=== PATIENT | female | born 1955 | race Caucasian/White ===

== ENCOUNTER → 2016-11-09 | Outpatient (CLI) | payer BC ==
[~2016-11-09] MED LIST: ATOXIMETIN-B1 CAP PO; BENADRYL25 M1 PO; CENEST; FLONASE NASAL S16 GM NS; GENTEAL0.32 OP; MULTIPLE VITAMI1 CAP PO; PREDNISONE10 MG; PREMARIN 0.60.625 M1 PO; RESTASIS0.05% OP; SINGULAIR 110 MG/TAB PO; VIACTIV CARAMEL PO; XOPENEX HF0.045 MG/A IH; ZYRTEC-D 12HR 51 TER PO
== END ==
LOC: MC.RAD 13:07
DX: Z12.31 Encounter for screening mammogram for malignant neoplasm of breast (principal); N63 Unspecified lump in breast

== ENCOUNTER → 2017-10-12 | Outpatient (CLI) | payer BC | LOC: MC.RAD 14:26 | DX: N63.10 Unspecified lump in the right breast, unspecified quadrant (principal) ==

== ENCOUNTER → 2017-10-18 | Outpatient (CLI) | payer BC | LOC: COL.RAD 12:36 | DX: E04.1 Nontoxic single thyroid nodule (principal); Z86.39 Personal history of other endocrine, nutritional and metabolic disease ==

== ENCOUNTER 2017-12-16 07:01 | Day surgery (SDC) | payer BC ==
[~2017-12-16] VITALS: Ht 160 cm; Wt 79.9 kg
[2017-12-16 07:34] VITALS: BP 148/82; PULSE 100; TEMP 98
[2017-12-16] MEDS ORDERED: PREMARIN .3MG0.3 MG PO (07:47)
[2017-12-16] MEDS ORDERED: RESTASIS0.05% (07:49)
[2017-12-16 08:35] VITALS: BP 128/70; PULSE 73; TEMP 97.4
[2017-12-16 08:50] VITALS: BP 128/75; PULSE 70
[2017-12-16 09:05] VITALS: BP 139/77; PULSE 66
[2017-12-16 09:20] VITALS: BP 135/71; PULSE 65
[2017-12-16 09:35] VITALS: BP 139/74; PULSE 62
== END 2017-12-16 10:00 | disposition home or self-care (01) ==
LOC: SDCO 07:01
DX: Z12.11 Encounter for screening for malignant neoplasm of colon (principal); D12.0 Benign neoplasm of cecum; J45.909 Unspecified asthma, uncomplicated; M19.90 Unspecified osteoarthritis, unspecified site; Z90.49 Acquired absence of other specified parts of digestive tract; Z90.710 Acquired absence of both cervix and uterus; Z86.010 Personal history of colon polyps; Z87.11 Personal history of peptic ulcer disease
CPT/HCPCS: OP; J2704; J7120

== ENCOUNTER → 2018-01-19 | Outpatient (CLI) | payer BC ==
[~2018-01-19] MED LIST changes: +PREMARIN .3MG0.3 MG PO; +RESTASIS0.05%
== END ==
LOC: MC.RAD 08:03
DX: N60.02 Solitary cyst of left breast (principal); N63.10 Unspecified lump in the right breast, unspecified quadrant

== ENCOUNTER → 2018-12-14 | Outpatient (CLI) | payer BC | LOC: MC.RAD 11:15 | DX: Z12.31 Encounter for screening mammogram for malignant neoplasm of breast (principal) ==

== ENCOUNTER → 2020-01-21 | Outpatient (CLI) | payer MEDICARE, OTHER | LOC: MC.RAD 10:18 | DX: Z12.31 Encounter for screening mammogram for malignant neoplasm of breast (principal); R92.2 Inconclusive mammogram; N63.10 Unspecified lump in the right breast, unspecified quadrant; N63.20 Unspecified lump in the left breast, unspecified quadrant ==

== ENCOUNTER → 2021-02-23 | Outpatient (CLI) | payer MEDICARE | LOC: MC.RAD 13:33 | DX: Z12.31 Encounter for screening mammogram for malignant neoplasm of breast (principal) ==

== ENCOUNTER → 2022-03-02 | Outpatient (CLI) | payer MEDICARE | LOC: MC.RAD 10:58 | DX: Z12.31 Encounter for screening mammogram for malignant neoplasm of breast (principal) ==

== ENCOUNTER → 2024-03-23 | Outpatient (CLI) | payer MEDICARE ==
[~2024-03-23] MED LIST changes: +COREG 3.123.125 MG/T PO; +FLONASEALLERGY NS; +GENTEALSEVERE OP; +MOBIC 7.5MG7.5 MG PO; +ONE-A-DAY ESSE1 EACH PO; +RESTASIS MULTI5.5 ML OP; +THERATEARS 15 M15 ML OP; +ZYRTEC 10MG10 MG PO
== END ==
LOC: MC.RAD 13:00
DX: Z12.31 Encounter for screening mammogram for malignant neoplasm of breast (principal); N64.89 Other specified disorders of breast

== ENCOUNTER → 2024-03-29 | Outpatient (CLI) | payer MEDICARE, OTHER | LOC: MC.RAD 13:49 | DX: N60.01 Solitary cyst of right breast (principal); N60.02 Solitary cyst of left breast; N64.89 Other specified disorders of breast ==